=== PATIENT | female | born 1960 | race Caucasian/White ===

== ENCOUNTER 2019-02-10 12:43 | Emergency (ER) | payer BC ==
[2019-02-10] MEDS ORDERED: CLINDAMYCIN HCL 150 MG CAPSULE PO ONE (15:23)
[2019-02-10] MEDS ORDERED: PREDNISONE 20 MG TABLET PO ONE (15:23)
--- NOTE | 2019-02-10 15:26 | ER Document Report ---
HPI - HPI Patient complains to provider of: skin rash Time Seen by Provider: 02/10/19 14:54 Onset: Other - 4 months Onset/Duration: Persistent Pain Level: 2 Context: Pt complains of pruritic skin rash to the bilateral upper extremities and neck area. Patient states she has had a rash for the past 4 months and has seen dermatology. Patient states that she felt like the transport tech was not doing anything and she was only having to repeatedly patient money so she has not followed back up with him. Associated Symptoms: Other - Skin rash. denies: Fever, Headache Exacerbated by: Denies Relieved by: Denies Similar symptoms previously: Yes Recently seen / treated by doctor: No - ROS ROS below otherwise negative: Yes Systems Reviewed and Negative: Yes All other systems reviewed and negative - CONSTITUTIONAL Constitutional: DENIES: Fever, Chills - NEURO Neurology: DENIES: Headache - CARDIOVASCULAR Cardiovascular: DENIES: Chest pain - RESPIRATORY Respiratory: DENIES: Trouble Breathing, Coughing - MUSCULOSKELETAL Musculoskeletal: REPORTS: Extremity pain - DERM Skin Color: Erythema Skin Problems: Rash Past Medical History - General Information source: Patient - Social History Smoking Status: Current Every Day Smoker Chew tobacco use (# tins/day): No Frequency of alcohol use: Occasional Drug Abuse: None Occupation: semi truck driver Family History: Reviewed & Not Pertinent Patient has suicidal ideation: No Patient has homicidal ideation: No - Past Medical History Cardiac Medical History: Reports: Hx Coronary Artery Disease - HX HIGH CHOLESTEROL, Hx Hypercholesterolemia Neurological Medical History: Denies: Hx Cerebrovascular Accident, Hx Seizures Renal/ Medical History: Denies: Hx Peritoneal Dialysis GI Medical History: Reports: Hx Gastroesophageal Reflux Disease Musculoskeletal Medical History: Reports Hx Arthritis Psychiatric Medical History: Reports: Hx Depression Surgical Hx: Negative Past Surgical History: Denies: Hx Hysterectomy - Immunizations Hx Diphtheria, Pertussis, Tetanus Vaccination: Yes Vertical Provider Document - CONSTITUTIONAL Agree With Documented VS: Yes Exam Limitations: No Limitations General Appearance: WD/WN, No Apparent Distress - INFECTION CONTROL TRAVEL OUTSIDE OF THE [place] IN LAST 30 DAYS: No - HEENT HEENT: Atraumatic, Normal ENT Exam, Normocephalic Notes: No conjunctival injection, intact oral and ocular mucous membranes. - NECK Neck: Normal Inspection, Supple - RESPIRATORY Respiratory: Breath Sounds Normal, No Respiratory Distress - CARDIOVASCULAR Cardiovascular: Regular Rate, Regular Rhythm Pulses: Normal: Radial - BACK Back: Normal Inspection - MUSCULOSKELETAL/EXTREMETIES Musculoskeletal/Extremeties: VIKA SERRANO - NEURO Level of Consciousness: Awake, Alert, Appropriate Motor/Sensory: No Motor Deficit - DERM Integumentary: Warm, Dry, Rash - Patient with extensive rash to bilateral upper extremities, anterior neck and a small patch to right lower abdomen. Areas appear excoriated. Area of erythema to upper extremities and neck area does coincide to sun exposed areas. Course - Re-evaluation Re-evalutation: 02/10/19 15:25 Patient states that she had been followed by the transport tech although got frustrated with having to repeatedly see him and pay him money. Patient states she had been told she had a contact dermatitis. Patient states she has been wearing nitrile gloves underneath her regular gloves without improvement of her symptoms. Patient without any findings worrisome for anaphylaxis. Will cover with antibiotics in case of developing a cellulitis. Patient encouraged to recheck with her transport tech or primary doctor for recheck. 02/10/19 15:30 02/10/19 15:37 Dr. Hammonds to bedside for examination, agrees with plan for steroids and antibiotics at this time. - Vital Signs Vital signs: Temp Pulse Resp BP Pulse Ox 98.5 F 61 18 133/63 H 96 02/10/19 13:40 02/10/19 13:40 02/10/19 13:40 02/10/19 13:40 02/10/19 13:40 Discharge - Discharge Clinical Impression: Skin rash Condition: Stable Disposition: HOME, SELF-CARE Instructions: Contact Dermatitis ([facility]), Steroid Medication Additional Instructions: Return immediately for any new or worsening symptoms Followup with your primary care provider, call tomorrow to make a followup appointment Follow-up with a transport tech for recheck, call tomorrow for an appointment Prescriptions: Clindamycin HCl [Cleocin Hcl] 300 mg PO QID #28 capsule Prednisone [Deltasone 20 mg Tablet] 3 tab PO DAILY 5 Days tablet Triamcinolone Acetonide [Aristocort 0.1% Cream] 1 applic TP BID #60 gm Forms: Smoking Cessation Education, Return to Work Referrals: HAMIDA ALVARADO DO [ACTIVE STAFF] - Follow up tomorrow
[2019-02-10 16:12] VITALS: BP 135/65
== END 2019-02-10 16:12 | disposition home or self-care (01) ==
LOC: ER 12:43
DX: R21 Rash and other nonspecific skin eruption (principal); R52 Pain, unspecified; I25.10 Atherosclerotic heart disease of native coronary artery without angina pectoris; F17.200 Nicotine dependence, unspecified, uncomplicated
CPT/HCPCS: 99282; J7512